=== PATIENT | male | born 1995 | race American Indian/Alaskan Native ===

== ENCOUNTER 2017-06-24 09:01 | Emergency (ER) | payer SELFPAY ==
[2017-06-24 12:44] LABS: Bilirubin,Urine NEG (Negative); Blood,Urine LG (Negative); Color,Urine Yellow (Yellow); Mucus,Urine FEW /HPF; RBC,Urine > 182.0 /HPF (0.0-6.0); Urobilinogen,Urine < 2.0 mg/dL (<2.0)
--- NOTE | 2017-06-24 13:18 | Emergency Department Report ---
Blank Doc - Documentation Documentation: Patient is a 22-year-old [place] male whose presenting with hematuria. Patient states it is a little left CVA tenderness this been present for the last 3 days. Patient states he has a history of kidney stones. Patient appears relatively comfortable but states these haven't large amounts of blood per urine. Patient states this is been a recurrent issue. Patient has not seen a urologist at this time. Patient will have temperatures done to rule out renal impairment and a ultrasound of the kidneys will be done as well. A
[2017-06-24] MEDS ORDERED: ULTRAM PO ONE (13:19)
[2017-06-24 13:55] LABS: Basophils % (Auto) 0.4 % (0.0-1.8); Eosinophils # (Auto) 0.1 K/mm3 (0.0-0.4); Hematocrit 44.6 % (35.5-45.6); Hemoglobin 14.7 gm/dl (11.8-15.2); Lymphocytes # (Auto) 2.5 K/mm3 (1.2-5.4); Lymphocytes % (Auto) 47.5 % (13.4-35.0); Mean Corpuscular HGB Conc 33 % (32-34); Mean Corpuscular Hemoglobin 32 pg (28-32); Mean Corpuscular Volume 98 fl (84-94); Monocytes # (Auto) 0.4 K/mm3 (0.0-0.8); Monocytes % (Auto) 7.9 % (0.0-7.3); Platelet Count 202 K/mm3 (140-440); Red Blood Count 4.55 M/mm3 (3.65-5.03); Red Cell Distribution Width 12.3 % (13.2-15.2)
[2017-06-24 14:11] LABS: BUN/Creatinine Ratio 10; Blood Urea Nitrogen 9 mg/dL (9-20); Calcium 9.3 mg/dL (8.4-10.2); Hemolysis Index 10
--- NOTE | 2017-06-24 14:37 | Ultrasound Report ---
ULTRASOUND RENAL BILATERAL HISTORY: Gross hematuria, right CVA tenderness. TECHNIQUE: transabdominal ultrasound with color Doppler interrogation. COMPARISON: CT abdomen pelvis without contrast dated 01/21/17. FINDINGS: The right kidney measures 10.9cm. Right renal cortex: 1.2cm. The left kidney measures 9.8cm. Left renal cortex: 1.3cm. The kidneys are normal size, contour and position. There is increased renal parenchymal echotexture bilaterally. Corticomedullary differentiation is preserved. No evidence for cystic disease, mass, nephrolithiasis, or perinephric fluid. Multiple, bilateral nonobstructing calyceal stones are suspected. No evidence for hydronephrosis. There is a small echogenic filling defect in the left side of the bladder measuring up to 5 mm which probably represents a recently passed stone. The remainder of the bladder is unremarkable. IMPRESSION: Slightly echogenic kidneys consistent with nonspecific renal parenchymal disease. Bilateral nonobstructing renal calyceal stones. Probable bladder stone.
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
[2017-06-24 16:07] VITALS: BP 119/64
== END 2017-06-24 16:11 | disposition home or self-care (01) ==
LOC: ED 09:01
DX: N20.0 Calculus of kidney (principal); F17.200 Nicotine dependence, unspecified, uncomplicated
CPT/HCPCS: 36415; 76770; 80048; 81001; 85025